=== PATIENT | male | born 1995 | race Caucasian/White ===

== ENCOUNTER 2016-06-28 16:02 | Emergency (ER) | payer MEDICAID ==
[~2016-06-28] VITALS: Ht 167.6 cm; Wt 90.7 kg
[2016-06-28 16:33] VITALS: BP 138/90
--- NOTE | 2016-06-28 19:21 | NUR ---
Patient ambulated to bed 2. RN evaluating patient at bedside.
--- NOTE | 2016-06-28 19:22 | NUR ---
PT PRESENTS TO ER FOR EVALUATION OF LACERATION TO RIGHT INDEX FINGER SUSTAINED WHILE ATTEMPTING TO CUT BOTTLE W/POCKET KNIFE. PT DENIES ANY OTHER MEDICAL HX. PT DENIES N/V/D; SKIN IS PINK/WARM/DRY; AAOX4 WITH EVEN AND STEADY GAIT; LUNGS CLEAR BL; HR EVEN AND REGULAR; PT DENIES ANY FEVER, CP, SOB, OR COUGH AT THIS TIME; PATIENT STATES PAIN OF 0/10 AT THIS TIME; VSS; PATIENT POSITIONED FOR COMFORT; HOB ELEVATED; BEDRAILS UP X2; BED DOWN. ER MD MADE AWARE OF PT STATUS.
[2016-06-28] MEDS ORDERED: BACITRACIN OINT 500 UNITS/GM PKT TP ONE ×2 (20:20→20:22)
[2016-06-28] MEDS ORDERED: LIDOCAINE 1% 500 MG/50 ML VIAL INJ ONE (20:20)
--- NOTE | 2016-06-28 20:20 | NUR ---
Patient being evaluated by physician DR VELASCO at bedside.
[2016-06-28] MEDS ORDERED: LIDOCAINE 2% 1000 MG/50 ML VIAL INJ ONE (20:21)
[2016-06-28 20:42] VITALS: BP 125/85
--- NOTE | 2016-06-28 20:42 | NUR ---
Patient discharged with v/s stable. Written and verbal after care instructions given and explained. Patient alert, oriented and verbalized understanding of instructions. Ambulatory with steady gait. All questions addressed prior to discharge. ID band removed. Patient advised to follow up with PMD. Rx of MOTRIN 800 MG given. Patient educated on indication of medication including possible reaction and side effects. Opportunity to ask questions provided and answered.
== END 2016-06-28 20:42 | disposition home or self-care (01) ==
LOC: MED 16:02
DX: S61.210A Laceration without foreign body of right index finger without damage to nail, initial encounter (principal); Z88.6 Allergy status to analgesic agent; X78.1XXA Intentional self-harm by knife, initial encounter; Y93.89 Activity, other specified; Y92.89 Other specified places as the place of occurrence of the external cause; Y99.8 Other external cause status
CPT/HCPCS: 12001; 99283; J2001